=== PATIENT | female | born 1930 | race Caucasian/White ===

== ENCOUNTER 2020-07-04 10:32 | Emergency (ER) | payer MEDICARE ==
[~2020-07-04] VITALS: Ht 152.4 cm; Wt 39.0 kg
--- NOTE | 2020-07-04 11:04 | RAD ---
AP chest. HISTORY: Dizziness AP view was taken of the chest. There is no prior study for comparison. There is thoracolumbar scolio sis. Heart is normal in size. There is no pleural effusion. There is a density in the left apex proba poonam a granuloma. There are no acute infiltrates. IMPRESSION: 1. No acute infiltrates. Electronically signed by: James Devi MD (07/04/2020 11:01 AM) [id number]
--- NOTE | 2020-07-04 11:09 | PHYS DOC ---
Past Medical History Past Medical History: GERD, Hypertension, Other Additional Past Medical Histor: neuropathy, osteoporosis, brain tumor Past Surgical History: Cholecystectomy, Hysterectomy Smoking Status: Never Smoker Alcohol Use: None General Adult EDM: Chief Complaint: OTHER COMPLAINTS HPI: HPI: Patient is a 89 year old female with history of hypertension, acid reflux, dizziness, who presents to the ED today to be evaluated for an abnormal EKG. Patient states she was at the doctor's office today and was told she has an abnormal EKG and was sent to the ED. She states she went to the doctor's office to be evaluated after falling on Thursday this week. She states falls are not unusual for her. She states she has chronic dizziness and occasionally she falls and has to crawl to reduce some of her dizziness symptoms. Denies any chest pain. Denies any shortness of breath but reports heavy breathing. She reports when she fell she hit "everything". Denies any pain. Patient states every time she goes to the doctor's office she usually finds a new young doctor who always gets scared and since her to the emergency room. Patient states she has no complaints not even pain after falling. Review of Systems: Review of Systems: Constitutional: Denies fever or chills. [] Eyes: Denies change in visual acuity. [] HENT: Denies nasal congestion or sore throat. [] Respiratory: Reports heavy breathing. Denies cough or shortness of breath. [] Cardiovascular: Reports abnormal EKG. Denies chest pain or edema. [] GI: Denies abdominal pain, nausea, vomiting, bloody stools or diarrhea. [] : Denies dysuria. [] Musculoskeletal: Denies back pain or joint pain. [] Integument: Denies rash. [] Neurologic: Reports chronic dizziness. Denies headache, focal weakness or sensory changes. [] Psychiatric: Denies depression or anxiety. [] Heart Score: Risk Factors: Risk Factors: DM, Current or recent (<one month) smoker, HTN, HLP, family history of CAD, obesity. Risk Scores: Score 0 - 3: 2.5% MACE over next 6 weeks - Discharge Home Score 4 - 6: 20.3% MACE over next 6 weeks - Admit for Clinical Observation Score 7 - 10: 72.7% MACE over next 6 weeks - Early Invasive Strategies Physical Exam: PE: Constitutional: Well developed, well nourished, no acute distress, non-toxic appearance. [] HENT: Normocephalic, atraumatic, bilateral external ears normal, oropharynx moist, no oral exudates, nose normal. [] Eyes: PERRLA, EOMI, conjunctiva normal, no discharge. [] Neck: Normal range of motion, no tenderness, supple, no stridor. [] Cardiovascular:Heart rate regular rhythm Lungs & Thorax: Bilateral breath sounds clear to auscultation [] Abdomen: Bowel sounds normal, soft, no tenderness, no masses, no pulsatile mass es. [] Skin: Warm, dry, no erythema, no rash. [] Back: No tenderness, no CVA tenderness. [] Extremities: No tenderness, no cyanosis, no clubbing, ROM intact, no edema. [] Neurologic: Alert and oriented X 3, normal motor function, normal sensory function, no focal deficits noted. [] Psychologic: Affect normal, judgement normal, mood normal. [] Current Patient Data: Vital Signs: Vital Signs Date Time Temp Pulse Resp B/P (MAP) Pulse Ox O2 Delivery O2 Flow Rate FiO2 07/04/20 10:49 98.4 92 16 135/63 (87) 98 Room Air 98.4 EKG: EK interpreted by Dr. Mensah sinus rhythm HR 90 no STEMI[] Radiology/Procedures: Radiology/Procedures: []PROCEDURE: CT HEAD AND CERVICAL SPINE WO CT HEAD AND C-SPINE WO Date: 07/04/2020 11:13 AM Clinical Indication: dizziness, fall hit head, pain Comparison: None. Technique: 5 mm axial tomographic images were obtained of the head without contrast. These were viewed on brain and bone windows. Noncontrast CT of the cervical spine was performed. Sagittal and coronal reformats were performed and evaluated. One or more of the following dose reduction techniques were utilized: Automated exposure control (AEC), Adjustment of mA and/or kV according to patient size, Use of iterative reconstruction technique such as ASiR, CT scan done according to ALARA and image gently/image wisely HEAD FINDINGS: Mild generalized cerebral and cerebellar volume loss. Mild nonspecific per iventricular hypoattenuation, most commonly seen with chronic small vessel ischemic disease. No intra- or extra-axial mass or fluid collection. No acute hemorrhage. The ventricles are normal in size, shape, and morphology. The arechiga-white matter junction is normal. The basilar cisterns are patent. The visualized paranasal sinuses are normal. The visualized portions of the orbits and globes are normal. The mastoid air cells are clear. No aggressive osseous lesion or fracture. CERVICAL SPINE FINDINGS: The cervical spine is normally aligned. No acute fracture. No aggressive lytic or blastic osseous lesions. Moderate multilevel degenerative disc space height loss. Retroodontoid degenerative pannus. Multilevel mild spinal canal stenosis secondary to disc p rotrusions and marginal osteophytes. Multilevel moderate neuroforaminal narrowing secondary to uncovertebral arthrosis. Multilevel moderate to severe facet arthrosis. The thyroid gland is normal. No cervical lymphadenopathy. Bilateral carotid atherosclerosis. The visualized aerodigestive tract is normal. Mild biapical subpleural fibrosis. IMPRESSION: 1. No acute intracranial process. 2. No acute cervical spine fracture. Electronically signed by: Nicole Ledesma MD (07/04/2020 11:51 AM) [facility] DICTATED and SIGNED BY: NICOLE LEDESMA MD DATE: 07/04/20 [id number] PROCEDURE: PORTABLE CHEST 1V AP chest. HISTORY: Dizziness AP view was taken of the chest. There is no prior study for comparison. There is thoracolumbar scoliosis. Heart is normal in size. There is no pleural effusion. There is a density in the left apex probably a granuloma. There are no acute infiltrates. IMPRESSION: 1. No acute infiltrates. Electronically signed by: James Devi MD (07/04/2020 11:01 AM) [id number] DICTATED and SIGNED BY: JAMES DEVI MD DATE: 07/04/20 [id number] Course & Med Decision Making: Course & Med Decision Making Pertinent Labs and Imaging studies reviewed. (See chart for details) This is a 89-year-old female patient presented to the ED today to be evaluated for an abnormal EKG that was noted during the doctor's visit today. Patient went to the doctor's office to be seen after falling on Thursday due to chronic dizziness. EKG done in the ED was negative for any acute findings, troponin is normal, labs are negative. CT of the head and cervical spine are negative, chest x-ray interpreted by radiologist as negative. Vitals are stable. Patient has no complaints. She was discharged back to home. Follow-up with PCP Richard Disclaimer: Richard Disclaimer: This electronic medical record was generated, in whole or in part, using a voice recognition dictation system. Departure Departure Impression: Primary Impression: Physical exam Disposition: 01 DC HOME SELF CARE/HOMELESS Condition: STABLE Referrals: UNKNOWN PCP NAME (PCP) follow up with your doctor next week Patient Instructions: Exam, Normal, Adult Additional Instructions: You were evaluated in the emergency room, there was no acute finding in your cardiac work-up. We also did a CT of your head and neck which were negative. Your chest x-ray was negative. Please follow up with your doctor next week. LIZETT WHITING APRN Jul 04, 2020 11:09
[2020-07-04 11:28] LABS: BASO # 0.1 x10^3/uL (0.0-0.2); BASO % 1 % (0-3); EOS # 0.2 x10^3/uL (0.0-0.7); EOS % 2 % (0-3); HEMATOCRIT 36.1 % (36.0-47.0); HEMOGLOBIN 12.1 g/dL (12.0-15.5); LYMPH # 1.4 x10^3/uL (1.0-4.8); LYMPH % 14 % (24-48); MEAN CORPUSCULAR HEMOGLOBIN 30 pg (25-35); MEAN CORPUSCULAR HGB CONC 34 g/dL (31-37); MEAN CORPUSCULAR VOLUME 90 fL (79-100); MONO # 0.9 x10^3/uL (0.0-1.1); MONO % 9 % (0-9); NEUT # 7.3 x10^3/uL (1.8-7.7); NEUT % 74 % (31-73); PLATELET COUNT 407 x10^3/uL (140-400); RED BLOOD COUNT 4.03 x10^6/uL (3.50-5.40); RED CELL DISTRIBUTION WIDTH 13.7 % (11.5-14.5); WHITE BLOOD COUNT 9.9 x10^3/uL (4.0-11.0)
[2020-07-04 11:37] LABS: CALCIUM 9.3 mg/dL (8.5-10.1); CREATININE 1.1 mg/dL (0.6-1.0); POTASSIUM 3.7 mmol/L (3.5-5.1)
[2020-07-04 11:38] LABS: PROTHROMBIN TIME PATIENT 12.6 SEC (11.7-14.0)
[2020-07-04 11:47] LABS: ALBUMIN 3.9 g/dL (3.4-5.0); ALBUMIN/GLOBULIN RATIO 1.1 (1.0-1.7); MAGNESIUM 2.2 mg/dL (1.8-2.4); TOTAL BILIRUBIN 0.5 mg/dL (0.2-1.0); TOTAL PROTEIN 7.3 g/dL (6.4-8.2)
--- NOTE | 2020-07-04 11:53 | RAD ---
CT HEAD AND C-SPINE WO Date: 07/04/2020 11:13 AM Clinical Indication: dizziness, fall hit head, pain Comparison: None. Technique: 5 mm axial tomographic images were obtained of the head without contrast. These were view ed on brain and bone windows. Noncontrast CT of the cervical spine was performed. Sagittal and leon l reformats were performed and evaluated. One or more of the following dose reduction techniques were utilized: Automated exposure control (AEC), Adjustment of mA and/or kV according to patient size, Us e of iterative reconstruction technique such as ASiR, CT scan done according to ALARA and image gentl y/image wisely HEAD FINDINGS: Mild generalized cerebral and cerebellar volume loss. Mild nonspecific periventricular hypoattenuatio n, most commonly seen with chronic small vessel ischemic disease. No intra- or extra-axial mass or fluid collection. No acute hemorrhage. The ventricles are normal in size, shape, and morphology. The arechiga-white matter junction is normal. The basilar cisterns are paten t. The visualized paranasal sinuses are normal. The visualized portions of the orbits and globes are no rmal. The mastoid air cells are clear. No aggressive osseous lesion or fracture. CERVICAL SPINE FINDINGS: The cervical spine is normally aligned. No acute fracture. No aggressive lytic or blastic osseous les ions. Moderate multilevel degenerative disc space height loss. Retroodontoid degenerative pannus. Multileve l mild spinal canal stenosis secondary to disc protrusions and marginal osteophytes. Multilevel moder ate neuroforaminal narrowing secondary to uncovertebral arthrosis. Multilevel moderate to severe face t arthrosis. The thyroid gland is normal. No cervical lymphadenopathy. Bilateral carotid atherosclerosis. The visu alized aerodigestive tract is normal. Mild biapical subpleural fibrosis. IMPRESSION: 1. No acute intracranial process. 2. No acute cervical spine fracture. Electronically signed by: Andrews Ledesma MD (07/04/2020 11:51 AM) [facility]
[2020-07-04 13:32] LABS: BILIRUBIN,URINE NEGATIVE (NEG); CLARITY,URINE CLEAR; COLOR,URINE YELLOW; NITRITE,URINE NEGATIVE (NEG); PROTEIN,URINE NEGATIVE (NEG-TRACE); UROBILINOGEN,URINE 0.2 mg/dL (0.2 mg/dL)
[2020-07-04 13:36] LABS: BARBITURATES NEG (NEG); BENZODIAZEPINES NEG (NEG); CANNABINOIDS NEG (NEG); COCAINE NEG (NEG); METHADONE NEG (NEG); OPIATES NEG (NEG); PHENCYCLIDINE NEG (NEG)
[2020-07-04 13:37] LABS: AMPHETAMINE/METHAMPHETAMINE NEG (NEG)
[2020-07-04 13:38] VITALS: BP 150/65
[2020-07-04 13:44] LABS: BACTERIA,URINE 0 /HPF (0-FEW)
[2020-07-04 13:45] LABS: HYALINE CASTS, URINE MANY /HPF
--- NOTE | 2020-07-04 17:49 | EKG ---
[facility] [address] [place] [id number] Test Date: 2020-07-04 Test Time: 10:58:11 Pat Name: ALBERTO JONES Department: Room: Gender: F Brand Attendant: : [id number] Requested By: LIZETT WHITING Order Number: [id number] Reading MD: Seun Smith Measurements Intervals [place] Rate: 90 P: 34 NC: 150 QRS: -7 QRSD: 84 T: 74 QT: 368 QTc: 454 Interpretive Statements SINUS RHYTHM LEFTWARD AXIS Electronically Signed On 07-10-2020 10:05:08 CONFIDENTIAL SECRETARY by Seun Smith
== END 2020-07-04 14:07 | disposition home or self-care (01) ==
LOC: ER 10:32
DX: R42 Dizziness and giddiness (principal); R94.31 Abnormal electrocardiogram [ECG] [EKG]; K21.9 Gastro-esophageal reflux disease without esophagitis; I10 Essential (primary) hypertension; Z90.710 Acquired absence of both cervix and uterus; Z90.49 Acquired absence of other specified parts of digestive tract
CPT/HCPCS: 36415; 70450; 71045; 72125; 80053; 80307; 81001; 83690; 83735; 83880; 84443; 84484; 85025; 85610; 87086; 93005; 99285